=== PATIENT | male | born 1950 | race Caucasian/White ===

== ENCOUNTER → 2020-11-13 | Outpatient (CLI) | payer OTHER ==
[~2020-11-13] MED LIST: DITROPAN 5 MG TA5 MG PO; HYDROCODON-ACE1 EAC2 PO; MYCOSTATIN100000 UTS PO; PRINIVIL20 MG PO; TENORMIN 25 MG25 MG PO; TURMERIC PO; VITAMIN D35000 UNI1 PO; ZOCOR20 MG PO
== END ==
LOC: MRI 13:17
DX: M79.9 Soft tissue disorder, unspecified (principal); R22.9 Localized swelling, mass and lump, unspecified; M79.642 Pain in left hand
CPT/HCPCS: 73220; A9577

== ENCOUNTER → 2020-11-25 | Outpatient (CLI) | payer OTHER | LOC: KOH-I 09:55 | DX: F17.210 Nicotine dependence, cigarettes, uncomplicated (principal) | CPT/HCPCS: 71271 ==

== ENCOUNTER → 2021-11-30 | Outpatient (CLI) | payer OTHER | LOC: KOH-I 15:28 | DX: Z87.891 Personal history of nicotine dependence (principal) | CPT/HCPCS: 71271 ==